=== PATIENT | female | born 1970 | race Caucasian/White ===

== ENCOUNTER 2017-08-04 05:35 | Day surgery (SDC) | payer OTHER ==
[~2017-08-04] VITALS: Ht 165.1 cm; Wt 61.2 kg
[~2017-08-04 05:35] MED LIST: SINGULAIR10 MG PO; ZYRTEC10 M2 PO
[2017-08-04 06:45] VITALS: BP 106/68
[2017-08-04 09:06] VITALS: BP 122/86
[2017-08-04 09:32] VITALS: BP 131/65
== END 2017-08-04 09:40 | disposition home or self-care (01) ==
LOC: SDC 05:35
PROC: 0UBC7ZX Excision of Cervix, Via Natural or Artificial Opening, Diagnostic (ICD-10-PCS; principal; 2017-08-04)
DX: R87.613 High grade squamous intraepithelial lesion on cytologic smear of cervix (HGSIL) (principal)
CPT/HCPCS: 88307; J1100; J2250; J2405; J3010